=== PATIENT | male | born 1960 | race Caucasian/White ===

== ENCOUNTER → 2016-08-01 | Outpatient (CLI) | payer OTHER ==
[~2016-08-01] MED LIST: ASPI325T4 PO; ATOR20TA PO; CARV12.543 PO; FURO-92 PO; GLIP5TAB3 PO; LEVO750T26 PO; LISI-167 PO; MAGN400T26 PO; POTA20TA14 PO; SPIR25TA PO
== END | disposition home or self-care (01) ==
LOC: RAD 15:08
PROVIDERS: ATTEND Physician Assistant Medical
DX: I11.0 Hypertensive heart disease with heart failure (principal); I50.22 Chronic systolic (congestive) heart failure; I51.7 Cardiomegaly; I25.810 Atherosclerosis of coronary artery bypass graft(s) without angina pectoris; I12.9 Hypertensive chronic kidney disease with stage 1 through stage 4 chronic kidney disease, or unspecified chronic kidney disease; N18.9 Chronic kidney disease, unspecified; E11.22 Type 2 diabetes mellitus with diabetic chronic kidney disease; N28.1 Cyst of kidney, acquired; E78.70 Disorder of bile acid and cholesterol metabolism, unspecified; Z79.4 Long term (current) use of insulin
CPT/HCPCS: 76770; 93306

== ENCOUNTER → 2018-05-21 | Outpatient (CLI) | payer OTHER ==
[~2018-05-21] MED LIST changes: +ASPI325T17 PO; -ASPI325T4 PO
== END | disposition home or self-care (01) ==
LOC: CFH 11:06
PROVIDERS: ATTEND Internal Medicine Cardiovascular Disease
DX: I07.1 Rheumatic tricuspid insufficiency (principal); I42.9 Cardiomyopathy, unspecified; I10 Essential (primary) hypertension; E11.9 Type 2 diabetes mellitus without complications
CPT/HCPCS: 93306

== ENCOUNTER → 2018-06-04 | Outpatient (CLI) | payer OTHER | END | disposition home or self-care (01) | LOC: RAD 09:49 | PROVIDERS: ATTEND Internal Medicine Nephrology | DX: E83.52 Hypercalcemia (principal) | CPT/HCPCS: 78070; A9500 ==